=== PATIENT | female | born 1970 | race Caucasian/White ===

== ENCOUNTER 2022-04-13 10:18 | Outpatient (CLI) | payer MEDICAID, SELFPAY ==
[2022-04-13 12:48] LABS: Abs Immature Grans 0.01 10^3/uL (0.0-0.06); Absolute Basophil Count 0.05 10^3/uL (0.0-0.2); Absolute Eosinophil Count 0.18 10^3/uL (0.0-0.7); Absolute Lymphocyte Count 1.19 10^3/uL (1.2-3.4); Absolute Monocyte Count 0.36 10^3/uL (0.1-0.8); Absolute Neutrophil Count 4.21 10^3/uL (1.2-6.7); Basophils % 0.8; HCT 44.8 % (36.0-46.0); HGB 14.7 g/dL (11.2-15.7); Immature Grans % 0.2; Lymphocytes % 19.8; MCHC 32.8 % (32.0-36.0); MCV 88 fL (80-95); MPV 9.9 fL (8.0-11.0); Neutrophils % 70.2; Platelet Count 386 10^3/uL (130-400); RBC 5.07 10^6/uL (3.93-5.22); RDW 13.2 % (11.7-14.6); RDW-SD 42.9 fL
[2022-04-13 13:12] LABS: TSH (W/Ref FT4) 6.14 uIU/mL (0.36-3.74)
[2022-04-13 13:35] LABS: FREE T4 0.82 ng/dL (0.76-1.46)
[2022-04-14 10:43] LABS: Lyme Ab w Rflx to Lyme Confirm Negative (Negative)
[2022-04-15 07:55] LABS: Anaplasma phagocytophilum Negative (Negative); B. miyamotoi PCR Negative (Negative); Babesia divergens/MO-1 Negative (Negative); Babesia duncani Negative (Negative); Babesia microti Negative (Negative); Ehrlichia chaffeensis Negative (Negative); Ehrlichia ewingii/canis Negative (Negative); Ehrlichia muris eauclairensis Negative (Negative)
== END 2022-04-13 10:19 | disposition home or self-care (01) ==
LOC: LOS 10:19
PROVIDERS: Visit Provider Physician Assistant
DX: R53.83 Other fatigue (principal); R51.9 Headache, unspecified; S70.361A Insect bite (nonvenomous), right thigh, initial encounter
CPT/HCPCS: 36415; 87798; 84439; 84443; 85025; 86618